=== PATIENT | male | born 1955 | race Caucasian/White ===

== ENCOUNTER 2017-01-28 19:54 | Inpatient (IN) | payer OTHER ==
[2017-01-28 21:51] LABS: BASO # 0.1 K/uL (0.0-0.2); BASO % 0.5 % (0.0-2.0); EOS # 0.2 K/uL (0.0-0.7); HEMATOCRIT 40.2 % (35.0-51.0); LYMPH # 0.9 K/uL (1.0-4.3); LYMPH % 9.5 % (20.0-40.0); MEAN CELL VOLUME 79.1 fL (80.0-94.0); MEAN CORPUSCULAR HEMOGLOBIN 27.1 pg (27.0-31.0); MEAN CORPUSCULAR HGB CONC 34.3 g/dL (33.0-37.0); MEAN PLATELET VOLUME 7.7 fL (7.2-11.7); MONO % 10.5 % (0.0-10.0); NRBC % 0.4 % (0.0-2.0); PLATELET COUNT 169 K/uL (130-400); RED CELL DISTRIBUTION WIDTH 14.4 % (11.5-14.5); WHITE BLOOD COUNT 9.4 K/uL (4.8-10.8)
[2017-01-28 21:58] LABS: CHLORIDE 96 mmol/L (98-107)
[2017-01-28 21:59] LABS: POTASSIUM 3.7 mmol/L (3.6-5.2); SODIUM 134 mmol/L (132-148)
[2017-01-28] MEDS ORDERED: Vancomycin 1 gm/NS 200 ml 1 GM/200 ML BAG IVPB ONE (22:00)
[2017-01-28 22:01] LABS: AST/SGOT 26 U/L (17-59); BILIRUBIN,TOTAL 1.4 mg/dL (0.2-1.3); CARBON DIOXIDE 27 mmol/L (22-30); GFR AFRICAN-AMERICAN > 60
[2017-01-28 22:02] LABS: ALB/GLOB RATIO 1.7 (1.0-2.1); ALKALINE PHOSPHATASE 67 U/L (38-126); ALT/SGPT 44 U/L (21-72); BLOOD UREA NITROGEN 20 mg/dL (9-20); CALCIUM 9.6 mg/dl (8.6-10.4); GLUCOSE,RANDOM 106 mg/dL (75-110); TOTAL PROTEIN 7.3 g/dL (6.3-8.3)
[2017-01-28 22:17] LABS: EOSINOPHIL 3 % (0-4); LARGE PLATELETS PRESENT; NEUTROPHIL 79 % (50-75); TOTAL CELLS COUNTED 100
--- NOTE | 2017-01-28 23:30 | CP.PCM.HP ---
<Tyler Elmore DO - Last Filed: 01/28/17 23:38> Meds Home Medications: Home Medication List Medication Instructions Recorded Confirmed Type Albuterol HFA [Ventolin HFA 90 2 puff INH RQ6 PRN #1 inhaler 02/04/17 Rx mcg/actuation (8 g)] Aspirin [Aspirin Chewable] 81 mg PO DAILY #30 chew 02/04/17 Rx Clindamycin [Cleocin] 300 mg PO Q6H #28 cap 02/04/17 Rx Montelukast [Singulair] 10 mg PO DAILY #30 tab 02/04/17 Rx Saccharomyces Boulardi [Florastor] 250 mg PO BID #16 cap 02/04/17 Rx Allergies/Adverse Reactions: Allergies Allergy/AdvReac Type Severity Reaction Status Date / Time No Known Allergies Allergy Verified 06/03/14 19:57 Results - Vital Signs Recent Vital Signs: Last Vital Signs Temp 98.1 F 01/28/17 20:51 Pulse 108 H 01/28/17 20:51 Resp 20 01/28/17 20:51 BP 165/85 H 01/28/17 20:51 Pulse Ox 96 01/28/17 20:51 - Labs Result Diagrams: 01/28/17 21:45 01/28/17 21:45 Labs: Laboratory Results - last 24 hr 01/28/17 01/28/17 21:45 21:45 WBC 9.4 RBC 5.09 Hgb 13.8 Hct 40.2 MCV 79.1 L MCH 27.1 MCHC 34.3 RDW 14.4 Plt Count 169 MPV 7.7 Neut % (Auto) 77.5 H Lymph % (Auto) 9.5 L Daniels % (Auto) 10.5 H Eos % (Auto) 2.0 Baso % (Auto) 0.5 Neut # 7.3 H Lymph # 0.9 L Daniels # 1.0 H Eos # 0.2 Baso # 0.1 Neutrophils % (Manual) 79 H Band Neutrophils % 1 Lymphocytes % (Manual) 12 L Monocytes % (Manual) 5 Eosinophils % (Manual) 3 Platelet Estimate Normal Large Platelets Present Sodium 134 Potassium 3.7 Chloride 96 L Carbon Dioxide 27 Anion Gap 15 BUN 20 Creatinine 0.9 Est GFR ( Amer) > 60 Est GFR (Non-Af Amer) > 60 Random Glucose 106 Calcium 9.6 Total Bilirubin 1.4 H AST 26 ALT 44 Alkaline Phosphatase 67 Total Protein 7.3 Albumin 4.6 Globulin 2.7 Albumin/Globulin Ratio 1.7 <McfarlandHazel houseelvirakumar S - Last Filed: 02/06/17 17:44> History of Present Illness - History of Present Illness History of Present Illness: A 61-year-old male with PMHasthma, CAD, HTN, perirectal abscess presents to the ER with C/Oright elbow swelling for 7 days. C/Oswelling of right elbow for 7 days. Associated with redness, pain and difficulty movement of the right elbow. No C/Ofever, chills, vomiting, SOB. Past Patient History - Infectious Disease Hx of Infectious Diseases: None - Past Medical History & Family History Past Medical History?: Yes - Past Social History Smoking Status: Never Smoked - CARDIAC Hx Cardiac Disorders: No - PULMONARY Hx Respiratory Disorders: Yes (Asthma) Hx Asthma: Yes Hx Bronchitis: No Hx Chronic Obstructive Pulmonary Disease (COPD): No Hx Emphysema: No Hx Lung Cancer: No Hx Pneumonia: No Hx Pulmonary Edema: No Hx Pulmonary Embolism: No Hx Respiratory Aspiration: No Hx Respiratory Tract Infection: No Hx Sleep Apnea: No Hx Tuberculosis: No - NEUROLOGICAL Hx Neurological Disorder: No - HEENT Hx HEENT Problems: No - RENAL Hx Chronic Kidney Disease: No - ENDOCRINE/METABOLIC Hx Endocrine Disorders: No - HEMATOLOGICAL/ONCOLOGICAL Hx Blood Disorders: No - INTEGUMENTARY Hx Dermatological Problems: No - MUSCULOSKELETAL/RHEUMATOLOGICAL Hx Musculoskeletal Disorders: No Hx Falls: No - GASTROINTESTINAL Hx Gastrointestinal Disorders: No - GENITOURINARY/GYNECOLOGICAL Hx Genitourinary Disorders: No - PSYCHIATRIC Hx Psychophysiologic Disorder: No Hx Substance Use: No - SURGICAL HISTORY Other/Comment: lymph node removal, placement of the right sided chest tube - ANESTHESIA Hx Anesthesia: Yes Hx Anesthesia Reactions: No Hx Malignant Hyperthermia: No Results - Vital Signs Recent Vital Signs: Last Vital Signs Temp 98.1 F 01/28/17 20:51 Pulse 108 H 01/28/17 20:51 Resp 20 01/28/17 20:51 BP 165/85 H 01/28/17 20:51 Pulse Ox 96 01/28/17 20:51 - Labs Result Diagrams: 02/04/17 06:24 02/04/17 06:24 Labs: Laboratory Results - last 24 hr 01/28/17 01/28/17 21:45 21:45 WBC 9.4 RBC 5.09 Hgb 13.8 Hct 40.2 MCV 79.1 L MCH 27.1 MCHC 34.3 RDW 14.4 Plt Count 169 MPV 7.7 Neut % (Auto) 77.5 H Lymph % (Auto) 9.5 L Daniels % (Auto) 10.5 H Eos % (Auto) 2.0 Baso % (Auto) 0.5 Neut # 7.3 H Lymph # 0.9 L Daniels # 1.0 H Eos # 0.2 Baso # 0.1 Neutrophils % (Manual) 79 H Band Neutrophils % 1 Lymphocytes % (Manual) 12 L Monocytes % (Manual) 5 Eosinophils % (Manual) 3 Platelet Estimate Normal Large Platelets Present Sodium 134 Potassium 3.7 Chloride 96 L Carbon Dioxide 27 Anion Gap 15 BUN 20 Creatinine 0.9 Est GFR ( Amer) > 60 Est GFR (Non-Af Amer) > 60 Random Glucose 106 Calcium 9.6 Total Bilirubin 1.4 H AST 26 ALT 44 Alkaline Phosphatase 67 Total Protein 7.3 Albumin 4.6 Globulin 2.7 Albumin/Globulin Ratio 1.7
[2017-01-29] MEDS ORDERED: Oxycodone/Acetaminophen 5/325 mg Tab PO PRN (00:10)
--- NOTE | 2017-01-29 05:08 | C.PDOC ---
History Of Present Illness Patient is a 61 y/o male who presents to the ED with complaints of pain, redness , and swelling of right elbow area for the last 6 days. Patient reports the redness intensified throughout the week as it expanded. Admits to scratching elbow last week, but denies any injury. No other physical complaints at this time. Chief Complaint (Nursing): Upper Extremity Problem/Injury History Per: Patient History/Exam Limitations: no limitations Onset/Duration Of Symptoms: Days (6 days) Current Symptoms Are (Timing): Still Present Recent travel outside of the [place]: No Past Medical History Reviewed: Historical Data, Nursing Documentation, Vital Signs Vital Signs: Last Vital Signs Temp 98.2 F 01/29/17 00:20 Pulse 100 H 01/29/17 00:20 Resp 20 01/29/17 00:20 BP 124/70 01/29/17 00:20 Pulse Ox 96 01/29/17 06:07 - Medical History PMH: Asthma Denies: Bronchitis, COPD, Emphysema, Pneumonia, Pulmonary Embolism, Chronic Kidney Disease, Sleep Apnea Surgical History: No Surg Hx - [facility] Procedures INCIS PERIANAL ABSCESS (06/04/14) Family History: States: No Known Family Hx - Social History Hx Alcohol Use: No Hx Substance Use: No Review Of Systems Constitutional: Negative for: Fever, Chills Cardiovascular: Positive for: Edema (right elbow area) Musculoskeletal: Positive for: Arm Pain (right elbow area) Skin: Positive for: Other (redness of right elbow) Physical Exam - Physical Exam Appears: Well, Non-toxic, No Acute Distress Skin: Other (erythematous right elbow area) Oral Mucosa: Moist Chest: Symmetrical Cardiovascular: Rhythm Regular, No Murmur Respiratory: Normal Breath Sounds, No Rales, No Rhonchi, No Wheezing Gastrointestinal/Abdominal: Soft, No Tenderness Extremity: Swelling (right elbow area) ED Course And Treatment - Laboratory Results Result Diagrams: 01/28/17 21:45 01/28/17 21:45 O2 Sat by Pulse Oximetry: 96 Progress Note: Plan: XR of right elbow and blood work ordered. Percocet and IV fluids administered. Reasses: Patient is to be admitted. Disposition - Disposition Disposition: HOSPITALIZED Disposition Time: 21:40 Condition: STABLE - Clinical Impression Clinical Impression: Cellulitis - Scribe Statement The provider has reviewed the documentation as recorded by the Scribbabita Katz All medical record entries made by the Genaro were at my direction and personally dictated by me. I have reviewed the chart and agree that the record accurately reflects my personal performance of the history, physical exam, medical decision making, and the department course for this patient. I have also personally directed, reviewed, and agree with the discharge instructions and disposition.
--- NOTE | 2017-01-29 08:36 | RAD ---
PROCEDURE: Radiographs of the right elbow. HISTORY: r/o osteo COMPARISON: No prior. FINDINGS: BONES: No periosteal reaction. No fracture. JOINTS: Normal. No osteoarthritis. SOFT TISSUES: Diffuse subcutaneous reticulated edema ulnar side arm and forearm JOINT EFFUSION: None. OTHER FINDINGS: None. IMPRESSION: No fracture or lytic lesion. No periosteal reaction to suggest osteomyelitis Ulnar-sided subcutaneous reticulated edema consistent with lymphedema and/or cellulitis. No gas-forming cellulitis.
[2017-01-29] MEDS: Enoxaparin 40 mg Syringe SC SCH (10:09)
[2017-01-29] MEDS: Vancomycin 1 gm/NS 200 ml 1 GM/200 ML BAG IVPB SCH ×2 (10:10→21:21)
--- NOTE | 2017-01-29 16:09 | CP.PCM.PN ---
Subjective - Date & Time of Evaluation Date of Evaluation: 01/29/17 Time of Evaluation: 16:00 - Subjective Subjective: Progress note. Attending: Dr. Mcfarland This is a 61 yo male with past medical hx of asthma, CAD, HTN, perirectal abscess presenting with chief complaint of cellulitis right elbow. Patient began noticing redness and warmth to right elbow about 1 week ago. Pain, redness , warmth began spreading down arm. No fevers, chills, vomiting, cp, sob. No sick contacts. No recent travel. PMH: as above PSH: coronary stent Allergies: NKDA FH: Breast cancer, HLD- mother Social hx: No smoking. Occasional alcohol consumption. No drug use. Born in . Currently working. Objective - Vital Signs/Intake and Output Vital Signs (last 24 hours): Temp Pulse Resp BP Pulse Ox 98.3 F 92 H 20 135/82 96 01/29/17 08:06 01/29/17 08:06 01/29/17 08:06 01/29/17 08:06 01/29/17 06:10 Intake and Output: 01/29/17 01/29/17 06:59 18:59 Intake Total 340 Balance 340 - Medications Medications: Current Medications Enoxaparin Sodium (Lovenox) 40 mg SC DAILY [facility] Last Admin: 01/29/17 10:09 Dose: 40 mg Vancomycin/Sodium Chloride (Vancomycin 1 Gm/Ns 200 Ml) 1 gm in 200 mls @ 133 mls/hr IVPB Q12H [facility] Stop: 02/03/17 10:01 Last Admin: 01/29/17 10:10 Dose: 133 mls/hr Montelukast Sodium (Singulair) 10 mg PO HS [facility] Oxycodone/Acetaminophen (Percocet 5/325 Mg Tab) 1 tab PO Q4 PRN PRN Reason: Pain, Mild (1-3) Stop: 02/01/17 00:11 Pneumococcal Polyvalent Vaccine (Pneumovax 23 Vaccine) 0.5 ml IM .ONCE ONE Stop: 01/30/17 10:01 - Labs Labs: 01/28/17 21:45 01/28/17 21:45 - Constitutional Appears: Non-toxic, No Acute Distress - Head Exam Head Exam: ATRAUMATIC, NORMAL INSPECTION, NORMOCEPHALIC - Eye Exam Eye Exam: EOMI - ENT Exam ENT Exam: Mucous Membranes Moist - Neck Exam Neck Exam: Full ROM, Normal Inspection - Respiratory Exam Respiratory Exam: NORMAL BREATHING PATTERN. absent: Respiratory Distress - GI/Abdominal Exam GI & Abdominal Exam: Soft, Normal Bowel Sounds. absent: Tenderness - Extremities Exam Extremities Exam: Full ROM. absent: Normal Inspection Additional comments: erythema and warmth to right elbow with associated cellulitis with some spread down forearm - Neurological Exam Neurological Exam: Alert, Awake, Oriented x3 - Psychiatric Exam Psychiatric exam: Normal Affect, Normal Mood - Skin Skin Exam: Dry, Intact, Normal Color, Warm Assessment and Plan - Assessment and Plan (Free Text) Assessment: This is a 61 yo male with past medical hx of htn, cad, asthma presenting with 1. Right elbow cellulitis -vanco IV -ID consult -elbow x ray pending -MRI ordered -am labs. 2. Hx of asthma -continue singulair 3. Hx of HTN -continue to monitor 4. Hx of cad -daily asa 5. GI/DVT ppx -continue lovenox -heart healthy diet discussed with Dr. Mcfarland.
[2017-01-29] MEDS ORDERED: Albuterol HFA 90 mcg/actuation (8 g) INH PRN (16:15)
--- NOTE | 2017-01-29 18:40 | CP.PCM.PN ---
Subjective - Date & Time of Evaluation Date of Evaluation: 01/29/17 Time of Evaluation: 09:00 - Subjective Subjective: clinically same Objective - Vital Signs/Intake and Output Vital Signs (last 24 hours): Temp Pulse Resp BP Pulse Ox 98.5 F 89 20 125/78 97 01/29/17 15:00 01/29/17 15:00 01/29/17 15:00 01/29/17 15:00 01/29/17 15:00 Intake and Output: 01/29/17 01/29/17 06:59 18:59 Intake Total 340 Balance 340 - Medications Medications: Current Medications Albuterol (Ventolin Hfa 90 Mcg/Actuation (8 G)) 0 puff INH RQ6 PRN PRN Reason: Shortness of Breath Aspirin (Aspirin Chewable) 81 mg PO DAILY [facility] Enoxaparin Sodium (Lovenox) 40 mg SC DAILY [facility] Last Admin: 01/29/17 10:09 Dose: 40 mg Vancomycin/Sodium Chloride (Vancomycin 1 Gm/Ns 200 Ml) 1 gm in 200 mls @ 133 mls/hr IVPB Q12H [facility] Stop: 02/03/17 10:01 Last Admin: 01/29/17 10:10 Dose: 133 mls/hr Montelukast Sodium (Singulair) 10 mg PO HS [facility] Oxycodone/Acetaminophen (Percocet 5/325 Mg Tab) 1 tab PO Q4 PRN PRN Reason: Pain, Mild (1-3) Stop: 02/01/17 00:11 Pneumococcal Polyvalent Vaccine (Pneumovax 23 Vaccine) 0.5 ml IM .ONCE ONE Stop: 01/30/17 10:01 - Labs Labs: 01/28/17 21:45 01/28/17 21:45
--- NOTE | 2017-01-29 19:54 | CP.PCM.CON ---
History of Present Illness - History of Present Illness History of Present Illness: Patient is a 61 y/o male who presents to the ED with complaints of pain, redness , and swelling of right elbow area for the last 6 days. Patient reports the redness intensified throughout the week as it expanded. Admits to scratching elbow last week, but denies any injury. No other physical complaints at this time. referred for ID eval severe RUE cellulitis - Medical History PMH: Asthma Denies: Bronchitis, COPD, Emphysema, Pneumonia, Pulmonary Embolism, Chronic Kidney Disease, Sleep Apnea Surgical History: No Surg Hx Review of Systems - Constitutional Constitutional: As Per HPI - EENT Eyes: absent: As Per HPI, Blind Spots, Blurred Vision, Change in Vision, Decreased Night Vision, Diplopia, Discharge, Dry Eye, Exophthalmos, Floaters, Irritation, Itchy Eyes, Loss of Peripheral Vision, Pain, Photophobia, Requires Corrective Lenses, Sees Flashes, Spots in Vision, Tunnel Vision, Other Visual Disturbances, Loss of Vision, Other Ears: absent: As Per HPI, Decreased Hearing, Ear Discharge, Ear Pain, Tinnitus, Abnormal Hearing, Disequilibrium, Dizziness, Other Nose/Mouth/Throat: absent: As Per HPI, Epistaxis, Nasal Congestion, Nasal Discharge, Nasal Obstruction, Nasal Trauma, Nose Pain, Post Nasal Drip, Sinus Pain, Sinus Pressure, Bleeding Gums, Change in Voice, Dental Pain, Dry Mouth, Dysphagia, Halitosis, Hoarsness, Lip Swelling, Mouth Lesions, Mouth Pain, Odynophagia, Sore Throat, Throat Swelling, Tongue Swelling, Facial Pain, Neck Pain, Neck Mass, Other - Cardiovascular Cardiovascular: absent: As Per HPI, Acrocyanosis, Chest Pain, Chest Pain at Rest , Chest Pain with Activity, Claudication, Diaphoresis, Dyspnea, Dyspnea on Exertion, Edema, Irregular Heart Rhythm, Pain Radiating to Arm/Neck/Jaw, Leg Edema, Leg Ulcers, Lightheadedness, Orthopnea, Palpitations, Paroxysmal Nocturnal Dyspnea, Pedal Edema, Radiating Pain, Rapid Heart Rate, Slow Heart Rate, Syncope, Other - Respiratory Respiratory: absent: As Per HPI, Cough, Dyspnea, Hemoptysis, Dyspnea on Exertion , Wheezing, Snoring, Stridor, Pain on Inspiration, Chest Congestion, Excessive Mucous Production, Change in Mucous Color, Pain with Coughing, Other - Gastrointestinal Gastrointestinal: absent: As Per HPI, Abdominal Pain, Belching, Bloating, Change in Bowel Habits, Change in Stool Character, Coffee Ground Emesis, Constipation, Cramping, Diarrhea, Dyspepsia, Dysphagia, Early Satiety, Excessive Flatus, Fecal Incontinence, Heartburn, Hematemesis, Hematochezia, Loose Stools, Melena, Nausea, Odynophagia, Temesmus, Vomiting, Other - Genitourinary Genitourinary: absent: As Per HPI, Change in Urinary Stream, Difficulty Urinating, Dysuria, Flank Pain, Hematuria, Pyuria, Nocturia, Urinary Incontinence, Urinary Frequency, Urinary Hesitance, Urinary Urgency, Voiding Freq/Small Amts, Freq UTI, Hx Renal/Bladder Calculi, Hx /Renal Surgery, Bladder Distension, Other - Integumentary Integumentary: As Per HPI, Dry Skin, New Lesions, Pruritus, Rash, Skin Pain, Wounds - Neurological Neurological: absent: As Per HPI, Abnormal Gait, Abnormal Hearing, Abnormal Movements, Abnormal Speech, Behavioral Changes, Burning Sensations, Confusion, Convulsions, Disequilibrium, Dizziness, Numbness, Focal Weakness, Frequent Falls , Headaches, Lack of Coordination, Loss of Vision, Memory Loss, Paresthesias, Radicular Pain, Restless Legs, Sensory Deficit, Syncope, Tingling, Tremor, Vertigo, Weakness, Other Visual Disturbances, Other - Psychiatric Psychiatric: absent: As Per HPI, Abnormal Sleep Pattern, Anhedonia, Anxiety, Auditory Hallucinations, Behavioral Changes, Change in Appetite, Change in Libido, Confusion, Depression, Difficulty Concentrating, Hallucinations, Homicidal Ideation, Hopelessness, Irritability, Memory Loss, Mood Swings, Panic Attacks, Paranoia, Suicidal Ideation, Visual Hallucinations, Tactile Hallucinations, Other - Endocrine Endocrine: absent: As Per HPI, Change in Body Appearance, Change in Libido, Cold Intolorance, Deepening of Voice, Excessive Sweating, Fatigue, Flushing, Heat Intolorance, Increase in Ring/Shoe/Hat Size, Palpitations, Polydipsia, Polyphagia, Polyuria, Other - Hematologic/Lymphatic Hematologic: absent: As Per HPI, Easy Bleeding, Easy Bruising, Lymphadenopathy, Other Past Patient History - Infectious Disease Hx of Infectious Diseases: None - Past Medical History & Family History Past Medical History?: Yes - Past Social History Smoking Status: Never Smoked - CARDIAC Hx Cardiac Disorders: Yes Hx Hypertension: Yes - PULMONARY Hx Asthma: Yes Hx Bronchitis: No Hx Chronic Obstructive Pulmonary Disease (COPD): No Hx Emphysema: No Hx Pneumonia: No Hx Pulmonary Embolism: No Hx Sleep Apnea: No - NEUROLOGICAL Hx Neurological Disorder: No - HEENT Hx HEENT Problems: No - RENAL Hx Chronic Kidney Disease: No - ENDOCRINE/METABOLIC Hx Endocrine Disorders: No - HEMATOLOGICAL/ONCOLOGICAL Hx Blood Disorders: No - INTEGUMENTARY Hx Dermatological Problems: No - MUSCULOSKELETAL/RHEUMATOLOGICAL Hx Musculoskeletal Disorders: No Hx Falls: No - GASTROINTESTINAL Hx Gastrointestinal Disorders: No - GENITOURINARY/GYNECOLOGICAL Hx Genitourinary Disorders: No - PSYCHIATRIC Hx Substance Use: No - SURGICAL HISTORY Hx Surgeries: Yes Hx Cardiac Catheterization: Yes (2014) Other/Comment: lymph node removal, placement of the right sided chest tube-10 years ago. - ANESTHESIA Hx Anesthesia: Yes Hx Anesthesia Reactions: No Hx Malignant Hyperthermia: No Meds Allergies/Adverse Reactions: Allergies Allergy/AdvReac Type Severity Reaction Status Date / Time No Known Allergies Allergy Verified 06/03/14 19:57 - Medications Medications: Current Medications Albuterol (Ventolin Hfa 90 Mcg/Actuation (8 G)) 0 puff INH RQ6 PRN PRN Reason: Shortness of Breath Aspirin (Aspirin Chewable) 81 mg PO DAILY [facility] Enoxaparin Sodium (Lovenox) 40 mg SC DAILY [facility] Last Admin: 01/29/17 10:09 Dose: 40 mg Vancomycin/Sodium Chloride (Vancomycin 1 Gm/Ns 200 Ml) 1 gm in 200 mls @ 133 mls/hr IVPB Q12H [facility] Stop: 02/03/17 10:01 Last Admin: 01/29/17 10:10 Dose: 133 mls/hr Montelukast Sodium (Singulair) 10 mg PO [facility] Oxycodone/Acetaminophen (Percocet 5/325 Mg Tab) 1 tab PO Q4 PRN PRN Reason: Pain, Mild (1-3) Stop: 02/01/17 00:11 Pneumococcal Polyvalent Vaccine (Pneumovax 23 Vaccine) 0.5 ml IM .ONCE ONE Stop: 01/30/17 10:01 Physical Exam - Constitutional Appears: Non-toxic, Chronically Ill - Head Exam Head Exam: NORMOCEPHALIC - Eye Exam Eye Exam: PERRL. absent: Scleral icterus - ENT Exam ENT Exam: Normal External Ear Exam - Neck Exam Neck exam: Negative for: Lymphadenopathy - Respiratory Exam Respiratory Exam: Decreased Breath Sounds, Clear to Auscultation Bilateral - Cardiovascular Exam Cardiovascular Exam: REGULAR RHYTHM, +S1, +S2 - GI/Abdominal Exam GI & Abdominal Exam: Diminished Bowel Sounds, Soft. absent: Tenderness - Rectal Exam Rectal Exam: Deferred - Exam Exam: NORMAL INSPECTION - Extremities Exam Extremities exam: Positive for: pedal pulses present. Negative for: calf tenderness, pedal edema, tenderness - Back Exam Back exam: absent: CVA tenderness (L), CVA tenderness (R), paraspinal tenderness - Neurological Exam Neurological exam: Alert, CN II-XII Intact, Oriented x3, Reflexes Normal - Psychiatric Exam Psychiatric exam: Normal Mood - Skin Skin Exam: Dry, Warm Additional comments: cellulitis RUE Results - Vital Signs Recent Vital Signs: Last Vital Signs Temp 98.5 F 01/29/17 15:00 Pulse 89 01/29/17 15:00 Resp 20 01/29/17 15:00 BP 125/78 01/29/17 15:00 Pulse Ox 97 01/29/17 15:00 - Labs Result Diagrams: 01/28/17 21:45 01/28/17 21:45 Labs: Laboratory Results - last 24 hr 01/28/17 01/28/17 21:45 21:45 WBC 9.4 RBC 5.09 Hgb 13.8 Hct 40.2 MCV 79.1 L MCH 27.1 MCHC 34.3 RDW 14.4 Plt Count 169 MPV 7.7 Neut % (Auto) 77.5 H Lymph % (Auto) 9.5 L [place] % (Auto) 10.5 H Eos % (Auto) 2.0 Baso % (Auto) 0.5 Neut # 7.3 H Lymph # 0.9 L [place] # 1.0 H Eos # 0.2 Baso # 0.1 Neutrophils % (Manual) 79 H Band Neutrophils % 1 Lymphocytes % (Manual) 12 L Monocytes % (Manual) 5 Eosinophils % (Manual) 3 Platelet Estimate Normal Large Platelets Present Sodium 134 Potassium 3.7 Chloride 96 L Carbon Dioxide 27 Anion Gap 15 BUN 20 Creatinine 0.9 Est GFR ( Amer) > 60 Est GFR (Non-Af Amer) > 60 Random Glucose 106 Calcium 9.6 Total Bilirubin 1.4 H AST 26 ALT 44 Alkaline Phosphatase 67 Total Protein 7.3 Albumin 4.6 Globulin 2.7 Albumin/Globulin Ratio 1.7 Assessment & Plan (1) Cellulitis Status: Acute - Assessment and Plan (Free Text) Assessment: r/o psoriasis severe cellulitis
[2017-01-30 08:43] LABS: BASO % 0.4 % (0.0-2.0); EOS # 0.2 K/uL (0.0-0.7); EOS % 2.9 % (0.0-4.0); HEMATOCRIT 40.9 % (35.0-51.0); LYMPH # 0.7 K/uL (1.0-4.3); LYMPH % 8.2 % (20.0-40.0); MEAN CELL VOLUME 79.4 fL (80.0-94.0); MEAN CORPUSCULAR HEMOGLOBIN 26.7 pg (27.0-31.0); MEAN CORPUSCULAR HGB CONC 33.6 g/dL (33.0-37.0); MEAN PLATELET VOLUME 7.7 fL (7.2-11.7); MONO # 0.6 K/uL (0.0-0.8); MONO % 7.8 % (0.0-10.0); NRBC % 0.4 % (0.0-2.0); PLATELET COUNT 197 K/uL (130-400); RED CELL DISTRIBUTION WIDTH 14.5 % (11.5-14.5); WHITE BLOOD COUNT 8.2 K/uL (4.8-10.8)
[2017-01-30 08:50] LABS: CHLORIDE 97 mmol/L (98-107); POTASSIUM 4.2 mmol/L (3.6-5.2); SODIUM 134 mmol/L (132-148)
[2017-01-30 08:53] LABS: BLOOD UREA NITROGEN 12 mg/dL (9-20); CARBON DIOXIDE 26 mmol/L (22-30); GFR AFRICAN-AMERICAN > 60; GLUCOSE,RANDOM 123 mg/dL (75-110)
[2017-01-30 08:54] LABS: CALCIUM 9.3 mg/dl (8.6-10.4)
[2017-01-30] MEDS ORDERED: Influenza Vaccine 60 mcg/0.5 mL SYR (4YR UP) IM ONE (10:00)
[2017-01-30] MEDS ORDERED: Pneumococcal 23-Valent Vaccine IM ONE (10:00)
[2017-01-30] MEDS: Enoxaparin 40 mg Syringe SC SCH (10:11)
[2017-01-30 10:17] LABS: EOSINOPHIL 4 % (0-4); NEUTROPHIL 81 % (50-75); REACTIVE LYMPHOCYTES 1 % (0-0); TOTAL CELLS COUNTED 100
[2017-01-30] MEDS: Vancomycin 1 gm/NS 200 ml 1 GM/200 ML BAG IVPB SCH ×2 (10:54→21:25)
--- NOTE | 2017-01-30 11:58 | CP.PCM.PN ---
Subjective - Date & Time of Evaluation Date of Evaluation: 01/30/17 Time of Evaluation: 09:40 - Subjective Subjective: PGY 2 Med Note- Dr Ivette Mcfarland's service Pt seen and examined in no acute distress. Pt states that he is not sure what triggered this infection. Patient denies subjective fevers or chills, nausea, vomiting, diarrhea or constipation at this time. Objective - Vital Signs/Intake and Output Vital Signs (last 24 hours): Temp Pulse Resp BP Pulse Ox 98 F 81 20 143/81 97 01/30/17 07:52 01/30/17 07:52 01/30/17 07:52 01/30/17 07:52 01/30/17 07:52 Intake and Output: 01/30/17 01/30/17 06:59 18:59 Intake Total 240 Balance 240 - Medications Medications: Current Medications Albuterol (Ventolin Hfa 90 Mcg/Actuation (8 G)) 0 puff INH RQ6 PRN PRN Reason: Shortness of Breath Aspirin (Aspirin Chewable) 81 mg PO DAILY [facility] Last Admin: 01/30/17 10:11 Dose: 81 mg Enoxaparin Sodium (Lovenox) 40 mg SC DAILY [facility] Last Admin: 01/30/17 10:11 Dose: 40 mg Vancomycin/Sodium Chloride (Vancomycin 1 Gm/Ns 200 Ml) 1 gm in 200 mls @ 133 mls/hr IVPB Q12H [facility] Stop: 02/03/17 10:01 Last Admin: 01/30/17 10:54 Dose: 133 mls/hr Montelukast Sodium (Singulair) 10 mg PO HS [facility] Last Admin: 01/29/17 21:22 Dose: 10 mg Oxycodone/Acetaminophen (Percocet 5/325 Mg Tab) 1 tab PO Q4 PRN PRN Reason: Pain, Mild (1-3) Stop: 02/01/17 00:11 - Labs Labs: 01/30/17 08:31 01/30/17 08:31 - Constitutional Appears: Non-toxic, No Acute Distress - Head Exam Head Exam: ATRAUMATIC, NORMAL INSPECTION, NORMOCEPHALIC - Eye Exam Eye Exam: EOMI, Normal appearance Pupil Exam: NORMAL ACCOMODATION - ENT Exam ENT Exam: Mucous Membranes Moist - Neck Exam Neck Exam: Full ROM - Respiratory Exam Respiratory Exam: NORMAL BREATHING PATTERN. absent: Wheezes - Cardiovascular Exam Cardiovascular Exam: +S1, +S2 - GI/Abdominal Exam GI & Abdominal Exam: Soft, Normal Bowel Sounds - Extremities Exam Extremities Exam: Full ROM, Normal Capillary Refill. absent: Pedal Edema Additional comments: thumb opposition intact; warm, sweling, mild erythema noted; no ulcerations appreciated, dry ( left upper arm) - Back Exam Back Exam: Full ROM - Neurological Exam Neurological Exam: Alert, Awake - Psychiatric Exam Psychiatric exam: Normal Affect, Normal Mood - Skin Skin Exam: Dry, Normal Color, Warm Assessment and Plan - Assessment and Plan (Free Text) Assessment: Right elbow cellulitis -Vanco IV 1 gram Q12, Started 01/29 -Check Vanco trough before 4th dose of administration ~ 20:00 on 01/30. The vanco trough reported was checked early. It should have been checked right before the 4th administration of Vancomycin -Add Florastor -ID consult- F/U recommendations -elbow x ray- No apparent signs of osteomyelitis, no fracture or lytic lesion. XRAY findings suggestive of lymphedema and/or cellulitis- Refer to full report. -MRI ordered -Bands 3 Hx of Asthma -continue singulair, duonebs -oxygen PRN Hx of HTN Continue to monitor Hx of CAD ASA for now Recommendations to follow up with PMD after discharge GI/DVT ppx SCDs GI prophylaxis not currently indicated Continue lovenox Heart healthy diet Discussed with attending. All management and planning per Dr. Mcfarland.
[2017-01-30] MEDS ORDERED: Gadodiamide 287 mg/ml 20 ml IV ONE (13:29)
--- NOTE | 2017-01-30 15:24 | MRI ---
PROCEDURE: MRI of the right elbow without and with contrast HISTORY: rt elbow cellulitis. COMPARISON: Comparison is made to previous x-ray of the right elbow dated 01/28/2017 TECHNIQUE: Axial coronal and sagittal MRI images of the right elbow were obtained before and after IV contrast administration. 20 mL of Omniscan were injected intravenously. FINDINGS: There are subcutaneous inflammatory changes and edema more prominent at the posterior medial aspect of the right elbow. There are subcutaneous small pockets of fluid collection posterior to the proximal right ulna and olecranon process suggestive of small abscess formations. The largest fluid collection measures 19 x 13 millimeter. No evidence of bone marrow edema or cortical erosion to suggest acute osteomyelitis. No evidence of mass lesion or destructive bony lesion. No evidence of significant right elbow joint effusion. The rest of the soft tissue structures around the right elbow are grossly unremarkable. IMPRESSION: Subcutaneous inflammatory changes at the posterior aspect of the right elbow. Subcutaneous small fluid collections with the largest fluid collection measures 1.9 x 1.3 centimeter seen posterior to the olecranon process suggestive of small abscess formation. No evidence of osteomyelitis.
[2017-01-30] MEDS: Saccharomyces Boulardi 250 mg Cap PO SCH (17:14)
--- NOTE | 2017-01-30 19:11 | CP.PCM.PN ---
Subjective - Date & Time of Evaluation Date of Evaluation: 01/30/17 Time of Evaluation: 08:20 - Subjective Subjective: clinically same Objective - Vital Signs/Intake and Output Vital Signs (last 24 hours): Temp Pulse Resp BP Pulse Ox 98.5 F 95 H 20 145/79 96 01/30/17 16:00 01/30/17 16:00 01/30/17 16:00 01/30/17 16:00 01/30/17 16:00 Intake and Output: 01/30/17 01/31/17 18:59 06:59 Intake Total 700 Balance 700 - Medications Medications: Current Medications Albuterol (Ventolin Hfa 90 Mcg/Actuation (8 G)) 0 puff INH RQ6 PRN PRN Reason: Shortness of Breath Aspirin (Aspirin Chewable) 81 mg PO DAILY [facility] Last Admin: 01/30/17 10:11 Dose: 81 mg Enoxaparin Sodium (Lovenox) 40 mg SC DAILY [facility] Last Admin: 01/30/17 10:11 Dose: 40 mg Vancomycin/Sodium Chloride (Vancomycin 1 Gm/Ns 200 Ml) 1 gm in 200 mls @ 133 mls/hr IVPB Q12H [facility] Stop: 02/03/17 10:01 Last Admin: 01/30/17 10:54 Dose: 133 mls/hr Montelukast Sodium (Singulair) 10 mg PO HS [facility] Last Admin: 01/29/17 21:22 Dose: 10 mg Oxycodone/Acetaminophen (Percocet 5/325 Mg Tab) 1 tab PO Q4 PRN PRN Reason: Pain, Mild (1-3) Stop: 02/01/17 00:11 Saccharomyces Boulardii (Florastor) 250 mg PO BID [facility] Last Admin: 01/30/17 17:14 Dose: 250 mg - Labs Labs: 01/30/17 08:31 01/30/17 08:31 - Constitutional Appears: Well - Head Exam Head Exam: ATRAUMATIC, NORMAL INSPECTION, NORMOCEPHALIC - Eye Exam Eye Exam: EOMI, Normal appearance, PERRL Pupil Exam: NORMAL ACCOMODATION, PERRL - ENT Exam ENT Exam: Mucous Membranes Moist, Normal Exam - Neck Exam Neck Exam: Full ROM, Normal Inspection. absent: Lymphadenopathy - Respiratory Exam Respiratory Exam: Decreased Breath Sounds - Cardiovascular Exam Cardiovascular Exam: REGULAR RHYTHM, +S1, +S2 - GI/Abdominal Exam GI & Abdominal Exam: Soft, Diminished Bowel Sounds - Rectal Exam Rectal Exam: Deferred
--- NOTE | 2017-01-30 19:24 | CP.PCM.PN ---
Subjective - Date & Time of Evaluation Date of Evaluation: 01/30/17 Time of Evaluation: 09:00 - Subjective Subjective: cellulitis less pain and swelling persist failed out pt rx Objective - Vital Signs/Intake and Output Vital Signs (last 24 hours): Temp Pulse Resp BP Pulse Ox 98.5 F 95 H 20 145/79 96 01/30/17 16:00 01/30/17 16:00 01/30/17 16:00 01/30/17 16:00 01/30/17 16:00 Intake and Output: 01/30/17 01/31/17 18:59 06:59 Intake Total 700 Balance 700 - Medications Medications: Current Medications Albuterol (Ventolin Hfa 90 Mcg/Actuation (8 G)) 0 puff INH RQ6 PRN PRN Reason: Shortness of Breath Aspirin (Aspirin Chewable) 81 mg PO DAILY [facility] Last Admin: 01/30/17 10:11 Dose: 81 mg Enoxaparin Sodium (Lovenox) 40 mg SC DAILY [facility] Last Admin: 01/30/17 10:11 Dose: 40 mg Vancomycin/Sodium Chloride (Vancomycin 1 Gm/Ns 200 Ml) 1 gm in 200 mls @ 133 mls/hr IVPB Q12H [facility] Stop: 02/03/17 10:01 Last Admin: 01/30/17 10:54 Dose: 133 mls/hr Montelukast Sodium (Singulair) 10 mg PO HS [facility] Last Admin: 01/29/17 21:22 Dose: 10 mg Oxycodone/Acetaminophen (Percocet 5/325 Mg Tab) 1 tab PO Q4 PRN PRN Reason: Pain, Mild (1-3) Stop: 02/01/17 00:11 Saccharomyces Boulardii (Florastor) 250 mg PO BID [facility] Last Admin: 01/30/17 17:14 Dose: 250 mg - Labs Labs: 01/30/17 08:31 01/30/17 08:31 - Constitutional Appears: Non-toxic, Chronically Ill - Head Exam Head Exam: NORMOCEPHALIC - Eye Exam Eye Exam: PERRL - ENT Exam ENT Exam: Mucous Membranes Dry - Neck Exam Neck Exam: absent: Lymphadenopathy - Respiratory Exam Respiratory Exam: Decreased Breath Sounds - Cardiovascular Exam Cardiovascular Exam: REGULAR RHYTHM - GI/Abdominal Exam GI & Abdominal Exam: Distended, Soft - Rectal Exam Rectal Exam: Deferred - Exam Exam: NORMAL INSPECTION Assessment and Plan (1) Cellulitis Status: Acute - Assessment and Plan (Free Text) Plan: cont iv rx as per Dr Mcfarland
[2017-01-31 09:40] LABS: BASO % 0.3 % (0.0-2.0); EOS # 0.2 K/uL (0.0-0.7); EOS % 3.9 % (0.0-4.0); HEMATOCRIT 37.7 % (35.0-51.0); LYMPH # 0.5 K/uL (1.0-4.3); LYMPH % 9.1 % (20.0-40.0); MEAN CELL VOLUME 79.7 fL (80.0-94.0); MEAN CORPUSCULAR HEMOGLOBIN 26.6 pg (27.0-31.0); MEAN CORPUSCULAR HGB CONC 33.3 g/dL (33.0-37.0); MEAN PLATELET VOLUME 7.9 fL (7.2-11.7); MONO # 0.4 K/uL (0.0-0.8); MONO % 7.1 % (0.0-10.0); NRBC % 0.2 % (0.0-2.0); PLATELET COUNT 184 K/uL (130-400); RED CELL DISTRIBUTION WIDTH 14.4 % (11.5-14.5); WHITE BLOOD COUNT 5.9 K/uL (4.8-10.8)
[2017-01-31 09:50] LABS: CHLORIDE 97 mmol/L (98-107); POTASSIUM 3.8 mmol/L (3.6-5.2); SODIUM 133 mmol/L (132-148)
[2017-01-31 09:52] LABS: ALB/GLOB RATIO 1.2 (1.0-2.1); AST/SGOT 25 U/L (17-59); BILIRUBIN,TOTAL 1.1 mg/dL (0.2-1.3); CARBON DIOXIDE 25 mmol/L (22-30); GFR AFRICAN-AMERICAN > 60; TOTAL PROTEIN 7.5 g/dL (6.3-8.3)
[2017-01-31 09:53] LABS: ALKALINE PHOSPHATASE 70 U/L (38-126); ALT/SGPT 43 U/L (21-72); BLOOD UREA NITROGEN 13 mg/dL (9-20); CALCIUM 9.2 mg/dl (8.6-10.4); GLUCOSE,RANDOM 162 mg/dL (75-110); MAGNESIUM 1.8 mg/dL (1.6-2.3); PHOSPHOROUS 2.7 mg/dL (2.5-4.5)
--- NOTE | 2017-01-31 10:26 | CP.PCM.PN ---
Subjective - Date & Time of Evaluation Date of Evaluation: 01/31/17 Time of Evaluation: 08:00 - Subjective Subjective: clinically same Objective - Vital Signs/Intake and Output Vital Signs (last 24 hours): Temp Pulse Resp BP Pulse Ox 97.6 F 90 20 135/81 97 01/31/17 07:35 01/31/17 07:38 01/31/17 07:35 01/31/17 07:35 01/31/17 07:35 Intake and Output: 01/31/17 01/31/17 06:59 18:59 Intake Total 240 Balance 240 - Medications Medications: Current Medications Albuterol (Ventolin Hfa 90 Mcg/Actuation (8 G)) 0 puff INH RQ6 PRN PRN Reason: Shortness of Breath Last Admin: 01/31/17 07:38 Dose: 1 puff Aspirin (Aspirin Chewable) 81 mg PO DAILY [facility] Last Admin: 01/30/17 10:11 Dose: 81 mg Enoxaparin Sodium (Lovenox) 40 mg SC DAILY [facility] Last Admin: 01/30/17 10:11 Dose: 40 mg Vancomycin/Sodium Chloride (Vancomycin 1 Gm/Ns 200 Ml) 1 gm in 200 mls @ 133 mls/hr IVPB Q12H [facility] Stop: 02/03/17 10:01 Last Admin: 01/30/17 21:25 Dose: 133 mls/hr Montelukast Sodium (Singulair) 10 mg PO HS [facility] Last Admin: 01/30/17 21:24 Dose: 10 mg Oxycodone/Acetaminophen (Percocet 5/325 Mg Tab) 1 tab PO Q4 PRN PRN Reason: Pain, Mild (1-3) Stop: 02/01/17 00:11 Saccharomyces Boulardii (Florastor) 250 mg PO BID [facility] Last Admin: 01/30/17 17:14 Dose: 250 mg - Labs Labs: 01/31/17 09:31 01/31/17 09:31 - Constitutional Appears: Well - Head Exam Head Exam: ATRAUMATIC, NORMAL INSPECTION, NORMOCEPHALIC - Eye Exam Eye Exam: EOMI, Normal appearance, PERRL Pupil Exam: NORMAL ACCOMODATION, PERRL - ENT Exam ENT Exam: Mucous Membranes Moist, Normal Exam - Neck Exam Neck Exam: Full ROM, Normal Inspection. absent: Lymphadenopathy - Respiratory Exam Respiratory Exam: Decreased Breath Sounds - Cardiovascular Exam Cardiovascular Exam: REGULAR RHYTHM, +S1, +S2 - GI/Abdominal Exam GI & Abdominal Exam: Soft, Diminished Bowel Sounds - Rectal Exam Rectal Exam: Deferred
[2017-01-31] MEDS: Enoxaparin 40 mg Syringe SC SCH (11:05)
[2017-01-31] MEDS: Saccharomyces Boulardi 250 mg Cap PO SCH ×2 (11:06→18:02)
[2017-01-31] MEDS: Vancomycin 1 gm/NS 200 ml 1 GM/200 ML BAG IVPB SCH ×2 (11:06→21:02)
[2017-01-31 11:37] LABS: EOSINOPHIL 1 % (0-4); LARGE PLATELETS PRESENT; NEUTROPHIL 84 % (50-75); TOTAL CELLS COUNTED 100
[2017-02-01] MEDS: Vancomycin 1 gm/NS 200 ml 1 GM/200 ML BAG IVPB SCH ×2 (10:41→21:49)
[2017-02-01] MEDS: Enoxaparin 40 mg Syringe SC SCH (10:41)
[2017-02-01] MEDS: Saccharomyces Boulardi 250 mg Cap PO SCH ×2 (10:41→18:37)
--- NOTE | 2017-02-01 15:31 | CP.PCM.PN ---
Subjective - Date & Time of Evaluation Date of Evaluation: 02/01/17 Time of Evaluation: 08:00 - Subjective Subjective: cellulitis less pain and swelling improving Objective - Vital Signs/Intake and Output Vital Signs (last 24 hours): Temp Pulse Resp BP Pulse Ox 98.5 F 90 20 150/82 96 02/01/17 08:00 02/01/17 08:00 02/01/17 08:00 02/01/17 08:00 02/01/17 08:00 Intake and Output: 02/01/17 02/01/17 06:59 18:59 Intake Total 540 800 Balance 540 800 - Medications Medications: Current Medications Albuterol (Ventolin Hfa 90 Mcg/Actuation (8 G)) 0 puff INH RQ6 PRN PRN Reason: Shortness of Breath Last Admin: 01/31/17 07:38 Dose: 1 puff Aspirin (Aspirin Chewable) 81 mg PO DAILY [facility] Last Admin: 02/01/17 10:41 Dose: 81 mg Enoxaparin Sodium (Lovenox) 40 mg SC DAILY [facility] Last Admin: 02/01/17 10:41 Dose: 40 mg Vancomycin/Sodium Chloride (Vancomycin 1 Gm/Ns 200 Ml) 1 gm in 200 mls @ 133 mls/hr IVPB Q12H [facility] Stop: 02/03/17 10:01 Last Admin: 02/01/17 10:41 Dose: 133 mls/hr Montelukast Sodium (Singulair) 10 mg PO HS [facility] Last Admin: 01/31/17 21:02 Dose: 10 mg Saccharomyces Boulardii (Florastor) 250 mg PO BID [facility] Last Admin: 02/01/17 10:41 Dose: 250 mg - Labs Labs: 01/31/17 09:31 01/31/17 09:31 - Constitutional Appears: Non-toxic, Chronically Ill - Head Exam Head Exam: NORMOCEPHALIC - Eye Exam Eye Exam: PERRL - ENT Exam ENT Exam: Mucous Membranes Dry - Neck Exam Neck Exam: absent: Lymphadenopathy - Respiratory Exam Respiratory Exam: Decreased Breath Sounds - Cardiovascular Exam Cardiovascular Exam: REGULAR RHYTHM - GI/Abdominal Exam GI & Abdominal Exam: Distended - Rectal Exam Rectal Exam: Deferred - Exam Exam: NORMAL INSPECTION - Extremities Exam Extremities Exam: absent: Calf Tenderness, Pedal Edema - Back Exam Back Exam: NORMAL INSPECTION. absent: CVA tenderness (L), CVA tenderness (R) - Neurological Exam Neurological Exam: Alert, Awake, Oriented x3 - Psychiatric Exam Psychiatric exam: Normal Mood - Skin Skin Exam: Dry Assessment and Plan (1) Cellulitis Status: Acute - Assessment and Plan (Free Text) Plan: cont rx out pt follow up when improved
--- NOTE | 2017-02-01 15:51 | CP.PCM.PN ---
Subjective - Date & Time of Evaluation Date of Evaluation: 02/01/17 Time of Evaluation: 07:40 - Subjective Subjective: clinically same Objective - Vital Signs/Intake and Output Vital Signs (last 24 hours): Temp Pulse Resp BP Pulse Ox 98.5 F 90 20 150/82 96 02/01/17 08:00 02/01/17 08:00 02/01/17 08:00 02/01/17 08:00 02/01/17 08:00 Intake and Output: 02/01/17 02/01/17 06:59 18:59 Intake Total 540 800 Balance 540 800 - Medications Medications: Current Medications Albuterol (Ventolin Hfa 90 Mcg/Actuation (8 G)) 0 puff INH RQ6 PRN PRN Reason: Shortness of Breath Last Admin: 01/31/17 07:38 Dose: 1 puff Aspirin (Aspirin Chewable) 81 mg PO DAILY [facility] Last Admin: 02/01/17 10:41 Dose: 81 mg Enoxaparin Sodium (Lovenox) 40 mg SC DAILY [facility] Last Admin: 02/01/17 10:41 Dose: 40 mg Vancomycin/Sodium Chloride (Vancomycin 1 Gm/Ns 200 Ml) 1 gm in 200 mls @ 133 mls/hr IVPB Q12H [facility] Stop: 02/03/17 10:01 Last Admin: 02/01/17 10:41 Dose: 133 mls/hr Montelukast Sodium (Singulair) 10 mg PO HS [facility] Last Admin: 01/31/17 21:02 Dose: 10 mg Saccharomyces Boulardii (Florastor) 250 mg PO BID [facility] Last Admin: 02/01/17 10:41 Dose: 250 mg - Labs Labs: 01/31/17 09:31 01/31/17 09:31
[2017-02-02 08:26] LABS: BASO % 0.5 % (0.0-2.0); EOS # 0.3 K/uL (0.0-0.7); EOS % 4.5 % (0.0-4.0); HEMATOCRIT 40.1 % (35.0-51.0); LYMPH # 0.6 K/uL (1.0-4.3); LYMPH % 10.4 % (20.0-40.0); MEAN CELL VOLUME 78.8 fL (80.0-94.0); MEAN CORPUSCULAR HEMOGLOBIN 26.9 pg (27.0-31.0); MEAN CORPUSCULAR HGB CONC 34.1 g/dL (33.0-37.0); MEAN PLATELET VOLUME 7.4 fL (7.2-11.7); MONO # 0.4 K/uL (0.0-0.8); MONO % 7.5 % (0.0-10.0); NRBC % 0.7 % (0.0-2.0); RED CELL DISTRIBUTION WIDTH 14.1 % (11.5-14.5); WHITE BLOOD COUNT 5.9 K/uL (4.8-10.8)
[2017-02-02 08:39] LABS: CHLORIDE 100 mmol/L (98-107)
[2017-02-02 08:40] LABS: POTASSIUM 4.4 mmol/L (3.6-5.2); SODIUM 135 mmol/L (132-148)
[2017-02-02 08:42] LABS: ALB/GLOB RATIO 1.6 (1.0-2.1); ALKALINE PHOSPHATASE 85 U/L (38-126); AST/SGOT 36 U/L (17-59); BILIRUBIN,TOTAL 1.1 mg/dL (0.2-1.3); BLOOD UREA NITROGEN 15 mg/dL (9-20); CARBON DIOXIDE 24 mmol/L (22-30); GFR AFRICAN-AMERICAN > 60; TOTAL PROTEIN 7.4 g/dL (6.3-8.3)
[2017-02-02 08:43] LABS: ALT/SGPT 55 U/L (21-72); CALCIUM 9.4 mg/dl (8.6-10.4); GLUCOSE,RANDOM 99 mg/dL (75-110)
[2017-02-02] MEDS: Enoxaparin 40 mg Syringe SC SCH (09:29)
[2017-02-02] MEDS: Saccharomyces Boulardi 250 mg Cap PO SCH ×2 (09:30→17:31)
[2017-02-02] MEDS: Vancomycin 1 gm/NS 200 ml 1 GM/200 ML BAG IVPB SCH ×2 (09:34→21:05)
--- NOTE | 2017-02-02 09:46 | CP.PCM.PN ---
Subjective - Date & Time of Evaluation Date of Evaluation: 02/02/17 Time of Evaluation: 09:15 - Subjective Subjective: PGY 3 Med Note- Dr Ivette Mcfarland's service Pt seen and examined at bedside this AM in no acute distress. Pt states that he is not sure what triggered this infection. Patient denies subjective fevers or chills, nausea, vomiting, diarrhea or constipation at this time. Patient says Dr. Heller came by and said his elbow looks much better. Patient does not have any pain at the site. Objective - Vital Signs/Intake and Output Vital Signs (last 24 hours): Temp Pulse Resp BP Pulse Ox 97.4 F L 90 20 157/82 H 96 02/02/17 08:56 02/02/17 08:56 02/02/17 08:56 02/02/17 08:56 02/02/17 08:56 Intake and Output: 02/02/17 02/02/17 06:59 18:59 Intake Total 780 Balance 780 - Medications Medications: Current Medications Albuterol (Ventolin Hfa 90 Mcg/Actuation (8 G)) 0 puff INH RQ6 PRN PRN Reason: Shortness of Breath Last Admin: 01/31/17 07:38 Dose: 1 puff Aspirin (Aspirin Chewable) 81 mg PO DAILY [facility] Last Admin: 02/02/17 09:29 Dose: 81 mg Enoxaparin Sodium (Lovenox) 40 mg SC DAILY [facility] Last Admin: 02/02/17 09:29 Dose: 40 mg Vancomycin/Sodium Chloride (Vancomycin 1 Gm/Ns 200 Ml) 1 gm in 200 mls @ 133 mls/hr IVPB Q12H [facility] Stop: 02/03/17 10:01 Last Admin: 02/02/17 09:34 Dose: 133 mls/hr Montelukast Sodium (Singulair) 10 mg PO HS [facility] Last Admin: 02/01/17 21:50 Dose: 10 mg Saccharomyces Boulardii (Florastor) 250 mg PO BID [facility] Last Admin: 02/02/17 09:30 Dose: 250 mg - Labs Labs: 02/02/17 08:18 02/02/17 08:18 - Constitutional Appears: Non-toxic, No Acute Distress - Head Exam Head Exam: NORMAL INSPECTION - Eye Exam Eye Exam: EOMI - ENT Exam ENT Exam: Mucous Membranes Moist - Respiratory Exam Respiratory Exam: Clear to Ausculation Bilateral, NORMAL BREATHING PATTERN. absent: Rales, Rhonchi, Wheezes - Cardiovascular Exam Cardiovascular Exam: REGULAR RHYTHM, +S1, +S2. absent: Gallop, Rubs, Murmur - GI/Abdominal Exam GI & Abdominal Exam: Soft, Normal Bowel Sounds. absent: Tenderness - Extremities Exam Extremities Exam: absent: Pedal Edema Additional comments: right elbow is erythematous, hot and swollen around olecranon - Neurological Exam Neurological Exam: Alert, Awake, Oriented x3 - Psychiatric Exam Psychiatric exam: Normal Affect, Normal Mood - Skin Skin Exam: Warm Assessment and Plan - Assessment and Plan (Free Text) Assessment: Right elbow cellulitis -Vanco IV 1 gram Q12, Started 01/29 -Florastor -ID consult- Dr. Heller - F/U recommendations on PO Abx -elbow x ray- No apparent signs of osteomyelitis, no fracture or lytic lesion. XRAY findings suggestive of lymphedema and/or cellulitis- Refer to full report. -Elbow MRI - subcutaneous inflammatory changes at the posterior aspect of the right elbow. Subcutaneous small fluid collections with the largest collection measuring 1.9x1.3cm seen posterior to the olecranon process suggestive of small abscess formation (please see full report) -WBC 5.9, no bands - no fever - blood culture negative x 4 days Hx of Asthma -continue singulair, duonebs -oxygen PRN Hx of HTN Continue to monitor Hx of CAD ASA for now Recommendations to follow up with PMD after discharge GI/DVT ppx SCDs GI prophylaxis not currently indicated Continue lovenox Heart healthy diet All medical management and planning per Dr. Mcfarland.
--- NOTE | 2017-02-02 11:26 | CP.PCM.PN ---
Subjective - Date & Time of Evaluation Date of Evaluation: 02/02/17 Time of Evaluation: 09:00 - Subjective Subjective: ? abscess for ortho eval Objective - Vital Signs/Intake and Output Vital Signs (last 24 hours): Temp Pulse Resp BP Pulse Ox 97.4 F L 90 20 157/82 H 96 02/02/17 08:56 02/02/17 08:56 02/02/17 08:56 02/02/17 08:56 02/02/17 08:56 Intake and Output: 02/02/17 02/02/17 06:59 18:59 Intake Total 780 Balance 780 - Medications Medications: Current Medications Albuterol (Ventolin Hfa 90 Mcg/Actuation (8 G)) 0 puff INH RQ6 PRN PRN Reason: Shortness of Breath Last Admin: 01/31/17 07:38 Dose: 1 puff Aspirin (Aspirin Chewable) 81 mg PO DAILY [facility] Last Admin: 02/02/17 09:29 Dose: 81 mg Enoxaparin Sodium (Lovenox) 40 mg SC DAILY [facility] Last Admin: 02/02/17 09:29 Dose: 40 mg Vancomycin/Sodium Chloride (Vancomycin 1 Gm/Ns 200 Ml) 1 gm in 200 mls @ 133 mls/hr IVPB Q12H [facility] Stop: 02/03/17 10:01 Last Admin: 02/02/17 09:34 Dose: 133 mls/hr Montelukast Sodium (Singulair) 10 mg PO HS [facility] Last Admin: 02/01/17 21:50 Dose: 10 mg Saccharomyces Boulardii (Florastor) 250 mg PO BID [facility] Last Admin: 02/02/17 09:30 Dose: 250 mg - Labs Labs: 02/02/17 08:18 02/02/17 08:18 - Constitutional Appears: Non-toxic, Chronically Ill - Head Exam Head Exam: NORMOCEPHALIC - Eye Exam Eye Exam: PERRL - ENT Exam ENT Exam: Mucous Membranes Dry - Neck Exam Neck Exam: absent: Lymphadenopathy - Respiratory Exam Respiratory Exam: Decreased Breath Sounds, Clear to Ausculation Bilateral - Cardiovascular Exam Cardiovascular Exam: REGULAR RHYTHM - GI/Abdominal Exam GI & Abdominal Exam: Soft. absent: Tenderness - Rectal Exam Rectal Exam: Deferred - Exam Exam: NORMAL INSPECTION - Extremities Exam Extremities Exam: absent: Pedal Edema - Back Exam Back Exam: absent: CVA tenderness (L), CVA tenderness (R) Assessment and Plan (1) Cellulitis Status: Acute
--- NOTE | 2017-02-02 18:45 | CP.PCM.CON ---
History of Present Illness - History of Present Illness History of Present Illness: ID: [id number] male [employer] CC: resolving cellulitis and tender mass posterior to R olecranon( septicc olecranon bursa) HPI- pt noted a1 wk hx of forearm cellultis extending to R elbow. Celulitis has resolved ( ID consult DR Heller- being treated with IV abios) Pt still has palpable and painful R olecranon bursa. m Pt for surgical I+D/ excisiomn in AM Past Patient History - Infectious Disease Hx of Infectious Diseases: None - Past Medical History & Family History Past Medical History?: Yes - Past Social History Smoking Status: Never Smoked - CARDIAC Hx Cardiac Disorders: Yes Hx Hypertension: Yes - PULMONARY Hx Asthma: Yes Hx Bronchitis: No Hx Chronic Obstructive Pulmonary Disease (COPD): No Hx Emphysema: No Hx Pneumonia: No Hx Pulmonary Embolism: No Hx Sleep Apnea: No - NEUROLOGICAL Hx Neurological Disorder: No - HEENT Hx HEENT Problems: No - RENAL Hx Chronic Kidney Disease: No - ENDOCRINE/METABOLIC Hx Endocrine Disorders: No - HEMATOLOGICAL/ONCOLOGICAL Hx Blood Disorders: No - INTEGUMENTARY Hx Dermatological Problems: No - MUSCULOSKELETAL/RHEUMATOLOGICAL Hx Musculoskeletal Disorders: No Hx Falls: No - GASTROINTESTINAL Hx Gastrointestinal Disorders: No - GENITOURINARY/GYNECOLOGICAL Hx Genitourinary Disorders: No - PSYCHIATRIC Hx Substance Use: No - SURGICAL HISTORY Hx Surgeries: Yes Hx Cardiac Catheterization: Yes (2014) Other/Comment: lymph node removal, placement of the right sided chest tube-10 years ago. - ANESTHESIA Hx Anesthesia: Yes Hx Anesthesia Reactions: No Hx Malignant Hyperthermia: No Meds Allergies/Adverse Reactions: Allergies Allergy/AdvReac Type Severity Reaction Status Date / Time No Known Allergies Allergy Verified 06/03/14 19:57 - Medications Medications: Current Medications Albuterol (Ventolin Hfa 90 Mcg/Actuation (8 G)) 0 puff INH RQ6 PRN PRN Reason: Shortness of Breath Last Admin: 01/31/17 07:38 Dose: 1 puff Aspirin (Aspirin Chewable) 81 mg PO DAILY [facility] Last Admin: 02/02/17 09:29 Dose: 81 mg Enoxaparin Sodium (Lovenox) 40 mg SC DAILY [facility] Last Admin: 02/02/17 09:29 Dose: 40 mg Vancomycin/Sodium Chloride (Vancomycin 1 Gm/Ns 200 Ml) 1 gm in 200 mls @ 133 mls/hr IVPB Q12H [facility] Stop: 02/03/17 10:01 Last Admin: 02/02/17 09:34 Dose: 133 mls/hr Montelukast Sodium (Singulair) 10 mg PO HS [facility] Last Admin: 02/01/17 21:50 Dose: 10 mg Saccharomyces Boulardii (Florastor) 250 mg PO BID [facility] Last Admin: 02/02/17 17:31 Dose: 250 mg Physical Exam - Skin Additional comments: Physical Exam Systemic- as per Dr Gerry Mcfarland note and consult of Dr bray (ID) Musculoskeltal stance/gait- defrred ROM R elbow- restricted terminbal flexion/extension palpable mass posterior to R olecrano Painful/tender olecranaon bursa N/V intact Results - Vital Signs Recent Vital Signs: Last Vital Signs Temp 97.4 F L 02/02/17 08:56 Pulse 90 02/02/17 08:56 Resp 20 02/02/17 08:56 BP 130/80 02/02/17 12:41 Pulse Ox 96 02/02/17 08:56 - Labs Result Diagrams: 02/02/17 08:18 02/02/17 08:18 Labs: Laboratory Results - last 24 hr 02/02/17 02/02/17 08:18 08:18 WBC 5.9 RBC 5.09 Hgb 13.7 Hct 40.1 MCV 78.8 L MCH 26.9 L MCHC 34.1 RDW 14.1 Plt Count 218 MPV 7.4 Neut % (Auto) 77.1 H Lymph % (Auto) 10.4 L [place] % (Auto) 7.5 Eos % (Auto) 4.5 H Baso % (Auto) 0.5 Neut # 4.5 Lymph # 0.6 L [place] # 0.4 Eos # 0.3 Baso # 0.0 Sodium 135 Potassium 4.4 Chloride 100 Carbon Dioxide 24 Anion Gap 16 BUN 15 Creatinine 0.8 Est GFR ( Amer) > 60 Est GFR (Non-Af Amer) > 60 Random Glucose 99 Calcium 9.4 Total Bilirubin 1.1 AST 36 ALT 55 Alkaline Phosphatase 85 Total Protein 7.4 Albumin 4.5 Globulin 2.9 Albumin/Globulin Ratio 1.6 - Impressions Impression: R elbow Xray- blurring of soft btissue planes in refion of elbow, speaking for septic process MRI- reveals evidenc eof a circumscribed bural focus, most probably septic Assessment & Plan - Assessment and Plan (Free Text) Assessment: A-septic olecranon bursa, with resolving forearm cellulits P- for I+D/ surgical excision in AM pros/cons risks and benfits discussed at lengthe with pt Pt wishes drainage and bursal excision to be done as soon as possible( pt ate today so will do firzt thing in AM)
--- NOTE | 2017-02-02 20:01 | CP.PCM.PN ---
Subjective - Date & Time of Evaluation Date of Evaluation: 02/02/17 Time of Evaluation: 08:40 - Subjective Subjective: Clinically same Objective - Vital Signs/Intake and Output Vital Signs (last 24 hours): Temp Pulse Resp BP Pulse Ox 97.4 F L 90 20 130/80 96 02/02/17 08:56 02/02/17 08:56 02/02/17 08:56 02/02/17 12:41 02/02/17 08:56 - Medications Medications: Current Medications Albuterol (Ventolin Hfa 90 Mcg/Actuation (8 G)) 0 puff INH RQ6 PRN PRN Reason: Shortness of Breath Last Admin: 01/31/17 07:38 Dose: 1 puff Aspirin (Aspirin Chewable) 81 mg PO DAILY [facility] Last Admin: 02/02/17 09:29 Dose: 81 mg Enoxaparin Sodium (Lovenox) 40 mg SC DAILY [facility] Last Admin: 02/02/17 09:29 Dose: 40 mg Vancomycin/Sodium Chloride (Vancomycin 1 Gm/Ns 200 Ml) 1 gm in 200 mls @ 133 mls/hr IVPB Q12H [facility] Stop: 02/03/17 10:01 Last Admin: 02/02/17 09:34 Dose: 133 mls/hr Montelukast Sodium (Singulair) 10 mg PO HS [facility] Last Admin: 02/01/17 21:50 Dose: 10 mg Saccharomyces Boulardii (Florastor) 250 mg PO BID [facility] Last Admin: 02/02/17 17:31 Dose: 250 mg - Labs Labs: 02/02/17 08:18 02/02/17 08:18 - Constitutional Appears: Well - Head Exam Head Exam: ATRAUMATIC, NORMAL INSPECTION, NORMOCEPHALIC - Eye Exam Eye Exam: EOMI, Normal appearance, PERRL - ENT Exam ENT Exam: Mucous Membranes Moist, Normal Exam - Neck Exam Neck Exam: Full ROM, Normal Inspection. absent: Lymphadenopathy - Respiratory Exam Respiratory Exam: Decreased Breath Sounds - Cardiovascular Exam Cardiovascular Exam: REGULAR RHYTHM, +S1, +S2. absent: Murmur - GI/Abdominal Exam GI & Abdominal Exam: Diminished Bowel Sounds - Rectal Exam Rectal Exam: Deferred
[2017-02-03 06:15] LABS: BASO % 0.6 % (0.0-2.0); EOS # 0.3 K/uL (0.0-0.7); EOS % 4.8 % (0.0-4.0); HEMATOCRIT 40.5 % (35.0-51.0); LYMPH # 0.7 K/uL (1.0-4.3); LYMPH % 10.9 % (20.0-40.0); MEAN CELL VOLUME 79.2 fL (80.0-94.0); MEAN CORPUSCULAR HEMOGLOBIN 26.7 pg (27.0-31.0); MEAN CORPUSCULAR HGB CONC 33.7 g/dL (33.0-37.0); MEAN PLATELET VOLUME 7.7 fL (7.2-11.7); MONO # 0.5 K/uL (0.0-0.8); MONO % 7.8 % (0.0-10.0); NRBC % 0.1 % (0.0-2.0); RED CELL DISTRIBUTION WIDTH 14.2 % (11.5-14.5); WHITE BLOOD COUNT 6.2 K/uL (4.8-10.8)
[2017-02-03 06:31] LABS: INR 1.1
[2017-02-03] MEDS ORDERED: Bacitracin 150,000 UNIT in Sodium Chloride 0.9% Irrig 3,000 ML IR SCH (07:05)
[2017-02-03] MEDS ORDERED: Albuterol HFA 90 mcg/actuation (8 g) INH PRN (07:15)
[2017-02-03] MEDS ORDERED: Propofol 10 mg/ml Inj (20 ML) ONE (07:22)
[2017-02-03] MEDS ORDERED: Midazolam 2 MG/2 ML VIAL ONE (07:22)
[2017-02-03] MEDS ORDERED: Lactated Ringer's 1,000 ML IV ONE ×2 (07:25→08:57)
[2017-02-03] MEDS ORDERED: Bupivacaine 0.5% Inj(30mL) ONE (07:33)
[2017-02-03 07:38] LABS: CHLORIDE 100 mmol/L (98-107)
[2017-02-03 07:39] LABS: POTASSIUM 4.2 mmol/L (3.6-5.2); SODIUM 136 mmol/L (132-148)
[2017-02-03 07:41] LABS: ALB/GLOB RATIO 1.6 (1.0-2.1); AST/SGOT 40 U/L (17-59); BLOOD UREA NITROGEN 15 mg/dL (9-20); CARBON DIOXIDE 25 mmol/L (22-30); GFR AFRICAN-AMERICAN > 60; TOTAL PROTEIN 7.3 g/dL (6.3-8.3)
[2017-02-03 07:42] LABS: ALKALINE PHOSPHATASE 85 U/L (38-126); ALT/SGPT 61 U/L (21-72); CALCIUM 9.1 mg/dl (8.6-10.4); GLUCOSE,RANDOM 94 mg/dL (75-110)
[2017-02-03] MEDS ORDERED: Vancomycin 1 gm/D5W 200 ml 1 GM/200 ML BAG IVPB ONE (07:55)
--- NOTE | 2017-02-03 08:21 | PCM.SURG1 ---
Surgeon's Initial Post Op Note - Surgeon's Notes Surgeon: Zac Lead Shipper: VIRGIL Fuchs Type of Anesthesia: General Endo Anesthesia Administered By: Dr Serna Pre-Operative Diagnosis: septic R olecranon bursa Operative Findings: as above. purulence in bursa and surrounding region Post-Operative Diagnosis: as above Operation Performed: Excsion septic olecranon bursa. Incision/drainage R elbow. excision skin, subcutaneous tissue and muscle. culture AND BIOPSY Specimen/Specimens Removed: OLECRANON BURSA. CULTURES SENT FOR AEROBIC/ ANAEROBIC, and fungal cultures. skin, subcutaneous tissue Estimated Blood Loss: EBL {In ML}: 5 Blood Products Given: N/A Drains Used: No Drains Post-Op Condition: Good Date of Surgery/Procedure: 02/03/17 Time of Surgery/Procedure: 08:00 (time in room/anesthesia indcution time 7:20)
[2017-02-03] MEDS ORDERED: Bacitracin Ointment 30 GM TUBE ONE (08:43)
[2017-02-03] MEDS ORDERED: HYDROmorphone 0.5 mg/0.5 ml ISec IVP PRN (09:00)
--- NOTE | 2017-02-03 09:11 | CP.PCM.PN ---
Subjective - Date & Time of Evaluation Date of Evaluation: 02/03/17 Time of Evaluation: 14:30 - Subjective Subjective: PGY 3 Med Note- Dr Ivette Mcfarland's service Pt seen and examined at bedside this AM in no acute distress. Patient denies subjective fevers or chills, nausea, vomiting, diarrhea or constipation at this time. Patient had I&D of olecranon abscess this AM Objective - Vital Signs/Intake and Output Vital Signs (last 24 hours): Temp Pulse Resp BP Pulse Ox 97.9 F 90 20 143/83 96 02/03/17 06:41 02/03/17 06:41 02/03/17 06:41 02/03/17 06:41 02/03/17 06:41 Intake and Output: 02/03/17 02/03/17 06:59 18:59 Intake Total 300 Output Total 600 Balance -300 - Medications Medications: Current Medications Albuterol (Ventolin Hfa 90 Mcg/Actuation (8 G)) 1 puff INH RQ6 PRN PRN Reason: Shortness of Breath Aspirin (Aspirin Chewable) 81 mg PO DAILY [facility] Last Admin: 02/02/17 09:29 Dose: 81 mg Enoxaparin Sodium (Lovenox) 40 mg SC DAILY [facility] Last Admin: 02/02/17 09:29 Dose: 40 mg Hydromorphone HCl (Dilaudid) 0.5 mg IVP Q5M PRN PRN Reason: Pain, moderate (4-7) Stop: 02/03/17 11:01 Vancomycin/Sodium Chloride (Vancomycin 1 Gm/Ns 200 Ml) 1 gm in 200 mls @ 133 mls/hr IVPB Q12H [facility] Stop: 02/03/17 10:01 Last Admin: 02/02/17 21:05 Dose: 133 mls/hr Montelukast Sodium (Singulair) 10 mg PO HS [facility] Last Admin: 02/02/17 21:05 Dose: 10 mg Ondansetron HCl (Zofran Inj) 4 mg IVP ONCE PRN PRN Reason: Nausea/Vomiting Stop: 02/03/17 11:01 Saccharomyces Boulardii (Florastor) 250 mg PO BID [facility] Last Admin: 02/02/17 17:31 Dose: 250 mg - Labs Labs: 02/03/17 06:10 02/03/17 06:10 PT 12.4 SECONDS (9.7-12.2) H 02/03/17 06:10 INR 1.1 02/03/17 06:10 APTT 30 SECONDS (21-34) 02/03/17 06:10 - Constitutional Appears: Non-toxic, No Acute Distress - Head Exam Head Exam: NORMAL INSPECTION - Eye Exam Eye Exam: EOMI - ENT Exam ENT Exam: Mucous Membranes Moist - Respiratory Exam Respiratory Exam: Clear to Ausculation Bilateral, NORMAL BREATHING PATTERN. absent: Rales, Rhonchi, Wheezes - Cardiovascular Exam Cardiovascular Exam: REGULAR RHYTHM, +S1, +S2. absent: Gallop, Rubs, Murmur - GI/Abdominal Exam GI & Abdominal Exam: Soft, Normal Bowel Sounds. absent: Tenderness - Extremities Exam Additional comments: right elbow wrapped - Neurological Exam Neurological Exam: Alert, Awake, Oriented x3 - Psychiatric Exam Psychiatric exam: Normal Affect, Normal Mood - Skin Skin Exam: Normal Color, Warm Assessment and Plan - Assessment and Plan (Free Text) Assessment: Right elbow cellulitis -Vanco IV 1 gram Q12, Started 01/29, day 6 -Florastor -ID consult- Dr. Heller - help appreciated - PO Clindamycin on discharge -elbow x ray- No apparent signs of osteomyelitis, no fracture or lytic lesion. XRAY findings suggestive of lymphedema and/or cellulitis- Refer to full report. -Elbow MRI - subcutaneous inflammatory changes at the posterior aspect of the right elbow. Subcutaneous small fluid collections with the largest collection measuring 1.9x1.3cm seen posterior to the olecranon process suggestive of small abscess formation (please see full report) -WBC 6.2, no bands - no fever - blood culture negative x 5 days - Ortho consult - Dr. Frank - help appreciated - POD #0 s/p olecranon I &D - purulence seen in bursa and surrounding region in operation - F/U tissue culture results Hx of Asthma -continue singulair, duonebs -oxygen PRN Hx of HTN Continue to monitor Hx of CAD ASA for now Recommendations to follow up with PMD after discharge GI/DVT ppx SCDs GI prophylaxis not currently indicated Continue lovenox Heart healthy diet All medical management and planning per Dr. Mcfarland.
[2017-02-03 09:36] LABS: FLUID TYPE SYNOVIAL FLUID
[2017-02-03] MEDS: Enoxaparin 40 mg Syringe SC SCH (10:00)
[2017-02-03] MEDS ORDERED: Lactated Ringer's 500 ML IV ONE (10:15)
--- NOTE | 2017-02-03 10:27 | CP.PCM.PN ---
Subjective - Date & Time of Evaluation Date of Evaluation: 02/03/17 Time of Evaluation: 08:00 - Subjective Subjective: went to or rx in progress discussed on rounds Objective - Vital Signs/Intake and Output Vital Signs (last 24 hours): Temp Pulse Resp BP Pulse Ox 97.1 F L 74 10 L 135/71 100 02/03/17 10:00 02/03/17 10:00 02/03/17 10:00 02/03/17 10:00 02/03/17 10:00 Intake and Output: 02/03/17 02/03/17 06:59 18:59 Intake Total 300 200 Output Total 600 Balance -300 200 - Medications Medications: Current Medications Albuterol (Ventolin Hfa 90 Mcg/Actuation (8 G)) 1 puff INH RQ6 PRN PRN Reason: Shortness of Breath Aspirin (Aspirin Chewable) 81 mg PO DAILY [facility] Last Admin: 02/02/17 09:29 Dose: 81 mg Enoxaparin Sodium (Lovenox) 40 mg SC DAILY [facility] Last Admin: 02/02/17 09:29 Dose: 40 mg Hydromorphone HCl (Dilaudid) 0.5 mg IVP Q5M PRN PRN Reason: Pain, moderate (4-7) Stop: 02/03/17 11:01 Montelukast Sodium (Singulair) 10 mg PO HS [facility] Last Admin: 02/02/17 21:05 Dose: 10 mg Ondansetron HCl (Zofran Inj) 4 mg IVP ONCE PRN PRN Reason: Nausea/Vomiting Stop: 02/03/17 11:01 Saccharomyces Boulardii (Florastor) 250 mg PO BID [facility] Last Admin: 02/02/17 17:31 Dose: 250 mg - Labs Labs: 02/03/17 06:10 02/03/17 06:10 PT 12.4 SECONDS (9.7-12.2) H 02/03/17 06:10 INR 1.1 02/03/17 06:10 APTT 30 SECONDS (21-34) 02/03/17 06:10 Assessment and Plan (1) Cellulitis Status: Acute
[2017-02-03 10:49] VITALS: RESP 20; O2SAT 96
[2017-02-03] MEDS: Vancomycin 1 gm/NS 200 ml 1 GM/200 ML BAG IVPB SCH (11:19)
[2017-02-03] MEDS: Saccharomyces Boulardi 250 mg Cap PO SCH ×2 (11:20→17:38)
--- NOTE | 2017-02-03 15:05 | CP.PCM.PN ---
Subjective - Date & Time of Evaluation Date of Evaluation: 02/03/17 Time of Evaluation: 07:40 - Subjective Subjective: clinically same Objective - Vital Signs/Intake and Output Vital Signs (last 24 hours): Temp Pulse Resp BP Pulse Ox 98.9 F 88 20 139/81 96 02/03/17 10:48 02/03/17 10:48 02/03/17 10:48 02/03/17 10:48 02/03/17 10:48 Intake and Output: 02/03/17 02/03/17 06:59 18:59 Intake Total 300 200 Output Total 600 Balance -300 200 - Medications Medications: Current Medications Albuterol (Ventolin Hfa 90 Mcg/Actuation (8 G)) 1 puff INH RQ6 PRN PRN Reason: Shortness of Breath Aspirin (Aspirin Chewable) 81 mg PO DAILY [facility] Last Admin: 02/03/17 11:20 Dose: 81 mg Enoxaparin Sodium (Lovenox) 40 mg SC DAILY [facility] Last Admin: 02/03/17 10:00 Dose: Not Given Montelukast Sodium (Singulair) 10 mg PO HS [facility] Last Admin: 02/02/17 21:05 Dose: 10 mg Saccharomyces Boulardii (Florastor) 250 mg PO BID [facility] Last Admin: 02/03/17 11:20 Dose: 250 mg - Labs Labs: 02/03/17 06:10 02/03/17 06:10 PT 12.4 SECONDS (9.7-12.2) H 02/03/17 06:10 INR 1.1 02/03/17 06:10 APTT 30 SECONDS (21-34) 02/03/17 06:10 - Constitutional Appears: Well - Head Exam Head Exam: ATRAUMATIC, NORMAL INSPECTION, NORMOCEPHALIC - Eye Exam Eye Exam: EOMI, Normal appearance, PERRL Pupil Exam: NORMAL ACCOMODATION, PERRL - ENT Exam ENT Exam: Mucous Membranes Moist, Normal Exam - Neck Exam Neck Exam: Full ROM, Normal Inspection. absent: Lymphadenopathy - Respiratory Exam Respiratory Exam: Decreased Breath Sounds - Cardiovascular Exam Cardiovascular Exam: REGULAR RHYTHM, +S1, +S2 - GI/Abdominal Exam GI & Abdominal Exam: Soft, Diminished Bowel Sounds - Rectal Exam Rectal Exam: Deferred
[2017-02-04 06:42] LABS: BASO % 0.3 % (0.0-2.0); EOS # 0.3 K/uL (0.0-0.7); EOS % 3.6 % (0.0-4.0); HEMATOCRIT 38.1 % (35.0-51.0); LYMPH # 0.7 K/uL (1.0-4.3); LYMPH % 9.4 % (20.0-40.0); MEAN CELL VOLUME 79.1 fL (80.0-94.0); MEAN CORPUSCULAR HEMOGLOBIN 26.4 pg (27.0-31.0); MEAN CORPUSCULAR HGB CONC 33.3 g/dL (33.0-37.0); MEAN PLATELET VOLUME 7.3 fL (7.2-11.7); MONO # 0.6 K/uL (0.0-0.8); MONO % 8.6 % (0.0-10.0); NRBC % 0.1 % (0.0-2.0); PLATELET COUNT 227 K/uL (130-400); RED CELL DISTRIBUTION WIDTH 14.4 % (11.5-14.5); WHITE BLOOD COUNT 7.2 K/uL (4.8-10.8)
[2017-02-04] MEDS ORDERED: Tramadol 25 mg PO PRN (06:55)
[2017-02-04 07:09] LABS: CHLORIDE 99 mmol/L (98-107); POTASSIUM 4.1 mmol/L (3.6-5.2); SODIUM 135 mmol/L (132-148)
[2017-02-04 07:11] LABS: BILIRUBIN,TOTAL 0.8 mg/dL (0.2-1.3); CARBON DIOXIDE 26 mmol/L (22-30); GFR AFRICAN-AMERICAN > 60
[2017-02-04 07:12] VITALS: BP 134/80; PULSE 83; TEMP 98.3
[2017-02-04 07:12] LABS: ALB/GLOB RATIO 1.2 (1.0-2.1); ALKALINE PHOSPHATASE 76 U/L (38-126); ALT/SGPT 63 U/L (21-72); AST/SGOT 32 U/L (17-59); BLOOD UREA NITROGEN 16 mg/dL (9-20); CALCIUM 9.1 mg/dl (8.6-10.4); GLUCOSE,RANDOM 92 mg/dL (75-110); TOTAL PROTEIN 7.4 g/dL (6.3-8.3)
[2017-02-04 08:08] LABS: EOSINOPHIL 3 % (0-4); NEUTROPHIL 84 % (50-75); TOTAL CELLS COUNTED 100
--- NOTE | 2017-02-04 08:48 | CP.PCM.PN ---
Subjective - Date & Time of Evaluation Date of Evaluation: 02/04/17 Time of Evaluation: 07:55 - Subjective Subjective: PGY 3 Med Note- Dr Ivette Mcfarland's service Pt seen and examined at bedside this AM in no acute distress. Patient denies subjective fevers or chills, nausea, vomiting, diarrhea or constipation at this time. Patient had I&D of olecranon abscess yesterday. Objective - Vital Signs/Intake and Output Vital Signs (last 24 hours): Temp Pulse Resp BP Pulse Ox 98.3 F 83 20 134/80 96 02/04/17 07:09 02/04/17 07:09 02/04/17 07:09 02/04/17 07:09 02/04/17 07:09 Intake and Output: 02/04/17 02/04/17 06:59 18:59 Intake Total 540 Output Total 800 Balance -260 - Medications Medications: Current Medications Acetaminophen (Tylenol 325mg Tab) 650 mg PO Q6 PRN PRN Reason: Pain, Mild (1-3) Albuterol (Ventolin Hfa 90 Mcg/Actuation (8 G)) 1 puff INH RQ6 PRN PRN Reason: Shortness of Breath Aspirin (Aspirin Chewable) 81 mg PO DAILY [facility] Last Admin: 02/03/17 11:20 Dose: 81 mg Enoxaparin Sodium (Lovenox) 40 mg SC DAILY [facility] Last Admin: 02/03/17 10:00 Dose: Not Given Montelukast Sodium (Singulair) 10 mg PO HS [facility] Last Admin: 02/03/17 21:00 Dose: 10 mg Saccharomyces Boulardii (Florastor) 250 mg PO BID [facility] Last Admin: 02/03/17 17:38 Dose: 250 mg Tramadol HCl (Ultram) 25 mg PO TID PRN PRN Reason: Pain, moderate (4-7) - Labs Labs: 02/04/17 06:24 02/04/17 06:24 PT 12.4 SECONDS (9.7-12.2) H 02/03/17 06:10 INR 1.1 02/03/17 06:10 APTT 30 SECONDS (21-34) 02/03/17 06:10 - Constitutional Appears: Non-toxic, No Acute Distress - Head Exam Head Exam: NORMAL INSPECTION - Eye Exam Eye Exam: EOMI - ENT Exam ENT Exam: Mucous Membranes Moist - Respiratory Exam Respiratory Exam: Wheezes (mild diffusely), NORMAL BREATHING PATTERN. absent: Accessory Muscle Use, Chest Wall Tenderness, Prolonged Expiratory Phase, Rales, Rhonchi, Respiratory Distress - Cardiovascular Exam Cardiovascular Exam: REGULAR RHYTHM, +S1, +S2. absent: Gallop, Rubs, Murmur - GI/Abdominal Exam GI & Abdominal Exam: Soft, Normal Bowel Sounds. absent: Tenderness - Extremities Exam Extremities Exam: absent: Pedal Edema Additional comments: right arm elevated and wrapped in bandage, clean and dry - Neurological Exam Neurological Exam: Alert, Awake, Oriented x3 - Psychiatric Exam Psychiatric exam: Normal Affect, Normal Mood - Skin Skin Exam: Normal Color, Warm Assessment and Plan - Assessment and Plan (Free Text) Assessment: Right elbow cellulitis -Vanco IV 1 gram Q12, Started 01/29, day 7 -Florastor -ID consult- Dr. Heller - help appreciated - PO Clindamycin on discharge -elbow x ray- No apparent signs of osteomyelitis, no fracture or lytic lesion. XRAY findings suggestive of lymphedema and/or cellulitis- Refer to full report. -Elbow MRI - subcutaneous inflammatory changes at the posterior aspect of the right elbow. Subcutaneous small fluid collections with the largest collection measuring 1.9x1.3cm seen posterior to the olecranon process suggestive of small abscess formation (please see full report) -WBC 6.2, no bands - no fever - blood culture negative x 5 days - Ortho consult - Dr. Frank - help appreciated - POD #1 s/p olecranon I &D - purulence seen in bursa and surrounding region in operation - F/U tissue culture results Hx of Asthma -continue singulair, duonebs -oxygen PRN Hx of HTN Continue to monitor Hx of CAD ASA for now Recommendations to follow up with PMD after discharge GI/DVT ppx SCDs GI prophylaxis not currently indicated Continue lovenox Heart healthy diet All medical management and planning per Dr. Mcfarland.
[2017-02-04] MEDS: Enoxaparin 40 mg Syringe SC SCH (10:09)
[2017-02-04] MEDS: Saccharomyces Boulardi 250 mg Cap PO SCH (10:09)
--- NOTE | 2017-02-04 12:29 | CP.PCM.PN ---
Subjective - Date & Time of Evaluation Date of Evaluation: 02/04/17 Time of Evaluation: 12:23 - Subjective Subjective: Patient states pain in elbow is well controlled. He says it is feeling better. He denies numbness/tingling. Objective - Vital Signs/Intake and Output Vital Signs (last 24 hours): Temp Pulse Resp BP Pulse Ox 98.3 F 83 20 134/80 96 02/04/17 07:09 02/04/17 07:09 02/04/17 07:09 02/04/17 07:09 02/04/17 07:09 Intake and Output: 02/04/17 02/04/17 06:59 18:59 Intake Total 540 Output Total 800 Balance -260 - Medications Medications: Current Medications Acetaminophen (Tylenol 325mg Tab) 650 mg PO Q6 PRN PRN Reason: Pain, Mild (1-3) Albuterol (Ventolin Hfa 90 Mcg/Actuation (8 G)) 1 puff INH RQ6 PRN PRN Reason: Shortness of Breath Aspirin (Aspirin Chewable) 81 mg PO DAILY [facility] Last Admin: 02/04/17 10:08 Dose: 81 mg Enoxaparin Sodium (Lovenox) 40 mg SC DAILY [facility] Last Admin: 02/04/17 10:09 Dose: 40 mg Montelukast Sodium (Singulair) 10 mg PO HS [facility] Last Admin: 02/03/17 21:00 Dose: 10 mg Saccharomyces Boulardii (Florastor) 250 mg PO BID [facility] Last Admin: 02/04/17 10:09 Dose: 250 mg Tramadol HCl (Ultram) 25 mg PO TID PRN PRN Reason: Pain, moderate (4-7) - Labs Labs: 02/04/17 06:24 02/04/17 06:24 PT 12.4 SECONDS (9.7-12.2) H 02/03/17 06:10 INR 1.1 02/03/17 06:10 APTT 30 SECONDS (21-34) 02/03/17 06:10 - Extremities Exam Additional comments: Wound dry, inocente intact, mild erythema over olecranon area, but as expected. No new collection or fluctuance. Almost full ROM elbow flex/ext/pronosupination without pain, some stiffness with full flexion. Sensation intact to med/ulnar/ rad nerve distrib. +radial pulse Assessment and Plan (1) Septic olecranon bursitis of right elbow Assessment & Plan: POD#1 s/p I&D of right infected olecranon bursitis -orthopedically stable for d/c home on PO antibiotics -sling, but encourage daily gentle ROM elbow to prevent stiffness -antibiotics per ID -f/u Dr. Frank in 1 week, call for appointment [phone] -d/w Dr. Frank, agrees with above -maintain clean dry dressing and bandage, may change q2-3 days, do not shower until inocente are out -advised patient if pain or swelling or redness recur, to f/u sooner or returnn to ER Status: Acute
--- NOTE | 2017-02-04 16:06 | CP.PCM.PN ---
Subjective - Date & Time of Evaluation Date of Evaluation: 02/04/17 Time of Evaluation: 09:00 - Subjective Subjective: pain in elbow is well controlled. He says it is feeling better. Objective - Vital Signs/Intake and Output Vital Signs (last 24 hours): Temp Pulse Resp BP Pulse Ox 98.3 F 83 20 134/80 96 02/04/17 07:09 02/04/17 07:09 02/04/17 07:09 02/04/17 07:09 02/04/17 07:09 Intake and Output: 02/04/17 02/04/17 06:59 18:59 Intake Total 540 Output Total 800 Balance -260 - Medications Medications: Current Medications Acetaminophen (Tylenol 325mg Tab) 650 mg PO Q6 PRN PRN Reason: Pain, Mild (1-3) Albuterol (Ventolin Hfa 90 Mcg/Actuation (8 G)) 1 puff INH RQ6 PRN PRN Reason: Shortness of Breath Aspirin (Aspirin Chewable) 81 mg PO DAILY [facility] Last Admin: 02/04/17 10:08 Dose: 81 mg Enoxaparin Sodium (Lovenox) 40 mg SC DAILY [facility] Last Admin: 02/04/17 10:09 Dose: 40 mg Montelukast Sodium (Singulair) 10 mg PO HS [facility] Last Admin: 02/03/17 21:00 Dose: 10 mg Saccharomyces Boulardii (Florastor) 250 mg PO BID [facility] Last Admin: 02/04/17 10:09 Dose: 250 mg Tramadol HCl (Ultram) 25 mg PO TID PRN PRN Reason: Pain, moderate (4-7) - Labs Labs: 02/04/17 06:24 02/04/17 06:24 PT 12.4 SECONDS (9.7-12.2) H 02/03/17 06:10 INR 1.1 02/03/17 06:10 APTT 30 SECONDS (21-34) 02/03/17 06:10 - Constitutional Appears: Non-toxic, Chronically Ill - Head Exam Head Exam: NORMAL INSPECTION - Eye Exam Eye Exam: PERRL. absent: Scleral icterus - ENT Exam ENT Exam: Mucous Membranes Dry - Neck Exam Neck Exam: absent: Lymphadenopathy - Respiratory Exam Respiratory Exam: Decreased Breath Sounds, Clear to Ausculation Bilateral - Cardiovascular Exam Cardiovascular Exam: REGULAR RHYTHM - GI/Abdominal Exam GI & Abdominal Exam: Distended, Soft Assessment and Plan (1) Cellulitis Status: Acute - Assessment and Plan (Free Text) Plan: cont rx
--- NOTE | 2017-02-04 16:58 | OP ---
PROCEDURE DATE: 02/03/2017 LOCATION: [facility] SURGICAL SITE: Right elbow. PREOPERATIVE DIAGNOSES: 1. Septic right olecranon bursa. 2. Purulence in the bursa and surrounding region. POSTOPERATIVE DIAGNOSES: 1. Septic right olecranon bursa. 2. Purulence in the bursa and surrounding region. OPERATIONS PERFORMED: 1. Excision of septic olecranon bursa. 2. Incision and drainage of right below. 3. Excision of skin and subcutaneous tissue and muscle. 4. Culture and biopsy. SURGEON: Kelechi Frank MD HYBRID TESTER: Margoth Faye, certified registered nursing accounts payable assistant. TYPE OF ANESTHESIA: General endotracheal anesthesia. ANESTHESIA ADMINISTERED BY: lD Serna MD SPECIMENS REMOVED: Olecranon bursa. Cultures were sent for aerobic and anaerobic AFB and fungal cultures, skin and subcutaneous tissue. ESTIMATED BLOOD LOSS: Approximately 5 mL to 10 mL. BLOOD PRODUCTS: No blood products given. DRAINS: No drains used. POSTOPERATIVE CONDITION: Stable. OPERATIVE INDICATION: Tyler Ryan is a 61-year-old gentleman employed by the [employer], who presents with pain and cellulitis and restricted range of motion of right elbow. The patient presents after having responded to the cellulitic component with MRI examination positive for probable purulent septic olecranon bursa. Pros, cons, risks, and benefits of the surgical approach were discussed with the patient. The patient can no longer stand the discomfort and wish the surgery be accomplished. Alternative procedures, possibility of mechanical failure, infection, and thromboembolic disease discussed. DESCRIPTION OF PROCEDURE: After having obtained informed consent in the above fashion, after the satisfactory induction of general endotracheal anesthesia, after having identified side, site, and procedure, and a critical pause/time-out, the patient is identified as Tyler Ryan. In the supine position, with all bony prominences well padded, the right upper extremity was prepped and free draped in the usual fashion for upper extremity surgery. The tourniquet is applied but not yet inflated. After the satisfactory induction of the anesthetic, after having identified side, site, and procedure, and a critical pause/time-out, the upper extremity is exsanguinated using a 4-inch Esmarch bandage, the tourniquet, which have been applied, is inflated to 250 mmHg. The operation was performed under 2.0 eyeglass magnification. An incision was described 3 fingerbreadths proximal to the olecranon, 3 to 4 fingerbreadths distal. The skin incision was carried down through the skin and subcutaneous tissue. Immediately, there was found to be evidence of purulence on exposure of the olecranon bursa. Great care was taken to elevate flaps medially and laterally and there was a great deal of redundant, damaged, and diseased tissue. The skin edges were tagged with stay suture and dissection was carried out to the base of the olecranon bursa. There was found to be purulence in the region and in the olecranon bursa. The olecranon bursa is grasped with an Allis clamp and the entire olecranon bursa is dissected and excised. The wound is thoroughly irrigated. The purulence is excised using a hand rongeur and a curette. This having been accomplished, so the purulent was removed and sent for culture and biopsy. Fluid was sent down to the lab mixed with saline, has a Gram stain, number of white cells per high-powered field and also aerobic and anaerobic, AFB, and fungal cultures were accomplished. Therefore, incision and drainage of the elbow was accomplished and aerobic and anaerobic, AFB, and fungal cultures x2 were sent. At this point in time, with skin hooks at the edges of the incision, an ellipse of skin is removed. Using #10-blade, the skin incision was carried out to the skin, subcutaneous tissue with involvement of muscle proximally in the area of the triceps. This having being removed, the wound is thoroughly irrigated. Tourniquet is deflated. Hemostasis controlled. Closures in layers with interrupted Vicryl and inocente. Giorgi Venegas compression dressing is applied. Kelechi Frank MD
== END 2017-02-04 16:30 | disposition home or self-care (01) | DRG 501 ==
LOC: C.ER 19:54 → C.9E 22:38 → C.3T 01-29 00:01 → OBSVTOIN 01-30 12:14 → C.3T 02-02 12:14
PROVIDERS: ADMIT Internal Medicine Nephrology; ATTEND Internal Medicine Nephrology
PROC: 0M930ZX Drainage of Right Elbow Bursa and Ligament, Open Approach, Diagnostic (ICD-10-PCS; 2017-02-03)
PROC: 0KB70ZZ Excision of Right Upper Arm Muscle, Open Approach (ICD-10-PCS; principal; 2017-02-03 07:30)
DX: M71.121 Other infective bursitis, right elbow (principal); L03.113 Cellulitis of right upper limb; I10 Essential (primary) hypertension; J45.909 Unspecified asthma, uncomplicated; L40.9 Psoriasis, unspecified; Z95.5 Presence of coronary angioplasty implant and graft; I25.10 Atherosclerotic heart disease of native coronary artery without angina pectoris